=== PATIENT | female | born 1980 | race Caucasian/White ===

== ENCOUNTER 2017-12-20 10:08 | Outpatient (CLI) | payer OTHER ==
[~2017-12-20 10:08] MED LIST: CELEBREX100 MG PO
== END 2017-12-20 11:00 | disposition home or self-care (01) ==
LOC: NUCLEAR 10:08
DX: M54.5 Low back pain (principal); E55.9 Vitamin D deficiency, unspecified; I49.8 Other specified cardiac arrhythmias

== ENCOUNTER 2020-10-03 14:44 | Emergency (ER) | payer OTHER ==
[~2020-10-03] VITALS: Ht 160 cm; Wt 59.0 kg
[2020-10-03] MEDS ORDERED: NORFLEX100MG PO (19:44)
[2020-10-03] MEDS ORDERED: DICLOFENAC SODI75 MG PO (19:44)
== END 2020-10-03 19:52 | disposition home or self-care (01) ==
LOC: ER 14:44
DX: R10.84 Generalized abdominal pain (principal); M54.5 Low back pain; Z03.818 Encounter for observation for suspected exposure to other biological agents ruled out